=== PATIENT | female | born 1975 | race Caucasian/White ===

== ENCOUNTER → 2016-12-01 17:02 | Outpatient (CLI) | payer BC ==
[2014-10-04 08:21] VITALS: BMI 35.9
[~2016-12-01 17:02] MED LIST: PAXIL20 MG PO; PRILOSEC20 MG PO
== END | disposition home or self-care (01) ==
LOC: D.MAMMO 14:30
DX: Z12.31 Encounter for screening mammogram for malignant neoplasm of breast (principal)

== ENCOUNTER → 2017-01-05 17:17 | Outpatient (CLI) | payer BC ==
[2014-10-04 08:21] VITALS: BMI 35.9
== END | disposition home or self-care (01) ==
LOC: D.MAMMO 13:30
DX: R92.8 Other abnormal and inconclusive findings on diagnostic imaging of breast (principal)

== ENCOUNTER → 2017-07-06 16:23 | Outpatient (CLI) | payer BC ==
[2014-10-04 08:21] VITALS: BMI 35.9
== END | disposition home or self-care (01) ==
LOC: D.MAMMO 09:00
DX: R92.8 Other abnormal and inconclusive findings on diagnostic imaging of breast (principal)

== ENCOUNTER 2018-09-02 19:00 | Outpatient (CLI) | payer BC ==
[2014-10-04 08:21] VITALS: BMI 35.9
== END 2018-09-02 23:59 | disposition home or self-care (01) ==
LOC: D.MAMMO 19:00
DX: Z12.31 Encounter for screening mammogram for malignant neoplasm of breast (principal)

== ENCOUNTER 2018-09-23 22:30 | Emergency (ER) | payer BC ==
[~2018-09-23] VITALS: Ht 154.9 cm; Wt 84.5 kg
[2018-09-23 22:46] VITALS: Ht 154.9 cm; Wt 84.5 kg
[2018-09-23] MEDS ORDERED: SAVELLA50 MG (22:48)
[2018-09-23] MEDS ORDERED: REQUIP0.25 MG (22:49)
[2018-09-23] MEDS ORDERED: MOBIC7.5 MG (22:49)
[2018-09-23] MEDS ORDERED: ULTRAM50 MG (22:49)
[2018-09-23] MEDS ORDERED: LISINOPRIL2.5 MG (22:49)
[2018-09-23 23:10] LABS: BASOPHILS 0.2 % (0-2); EOSINOPHILS 2.5 % (0-7); HEMATOCRIT 42.1 % (36.0-48.0); HEMOGLOBIN 14.7 g/dL (12-16); IMMATURE GRANULOCYTES 0.2 % (0-5); LYMPHOCYTES 39.6 % (15-50); MCH 32.5 pg (26.0-34.0); MCHC 34.9 g/dL (31.0-37.0); MCV 93.1 fL (80.0-100.0); MEAN PLATELET VOLUME 9.6 fL (7.4-10.4); MONOCYTES 8.6 % (2-11); NEUTROPHILS 48.9 % (40-80); PLATELET COUNT 360 10x3/uL (130-400); RBC 4.52 10x6/uL (4.00-5.40); RDW 11.8 % (11.5-14.5); WBC 11.4 10x3/uL (4.8-10.8)
[2018-09-23 23:16] LABS: APPEARANCE CLEAR (CLEAR); COLOR YELLOW (YELLOW); GLUCOSE NEGATIVE (NEGATIVE); NITRITE NEGATIVE (NEGATIVE); PROTEIN NEGATIVE (NEGATIVE)
[2018-09-23 23:17] LABS: BACTERIA NONE SEEN /hpf (NONE SEEN); BILIRUBIN NEGATIVE (NEGATIVE); EPITHELIAL CELLS RARE /hpf (0-5); KETONE SMALL mg/dL (NEGATIVE); WHITE CELLS - URINE 0-5 /hpf (0-5)
[2018-09-23 23:24] LABS: ALBUMIN 3.2 g/dL (3.4-5.0); ALKALINE PHOSPHATASE 106 U/L (46-116); ALT (SGPT) 26 U/L (10-68); BILIRUBIN - TOTAL 0.34 mg/dL (0.2-1.3); CALC OSMOLALITY 277 mosm/kg (275-300); CALCIUM 8.6 mg/dL (8.5-10.1); CARBON DIOXIDE 29.1 mmol/L (21.0-32.0); CHLORIDE - SERUM 101 mmol/L (98-107); CREATININE - SERUM 0.7 mg/dL (0.6-1.3); POTASSIUM - SERUM 4.3 mmol/L (3.5-5.1); SODIUM 137 mmol/L (136-145); UREA NITROGEN 12 mg/dL (7-18); eGFR NON AFRICAN AMERICAN > 90 mL/min (90-120)
[2018-09-23 23:27] LABS: AMYLASE - SERUM 56 U/L (25-115); LIPASE 249 U/L (73-393); TROPONIN-I < 0.017 ng/mL (0.000-0.060)
[2018-09-23 23:35] LABS: GLUCOSE 163 mg/dL (74-106)
[2018-09-24 04:28] VITALS: BP 122/68
== END 2018-09-24 04:28 | disposition home or self-care (01) ==
LOC: D.ER 22:30
PROVIDERS: Family Medicine
DX: M54.5 Low back pain (principal); R31.9 Hematuria, unspecified

== ENCOUNTER 2019-05-04 12:43 | Emergency (ER) | payer OTHER ==
[~2019-05-04] VITALS: Ht 154.9 cm; Wt 84.8 kg
[~2019-05-04 12:43] MED LIST changes: +LISINOPRIL2.5 MG; +MOBIC7.5 MG; +REQUIP0.25 MG; +SAVELLA50 MG; +ULTRAM50 MG
[2019-05-04 12:49] VITALS: Ht 154.9 cm; Wt 84.8 kg
[2019-05-04 15:02] VITALS: BP 131/70
== END 2019-05-04 16:10 | disposition home or self-care (01) ==
LOC: D.ER 12:43
DX: T50.905A Adverse effect of unspecified drugs, medicaments and biological substances, initial encounter (principal); Y92.019 Unspecified place in single-family (private) house as the place of occurrence of the external cause

== ENCOUNTER → 2020-03-27 19:23 | Outpatient (CLI) | payer OTHER ==
[2019-05-04 12:49] VITALS: BMI 35.2
== END | disposition home or self-care (01) ==
LOC: D.MAMMO 10:30
PROVIDERS: ATTEND Emergency Medicine
DX: Z12.31 Encounter for screening mammogram for malignant neoplasm of breast (principal)

== ENCOUNTER 2021-02-23 20:53 | Emergency (ER) | payer OTHER ==
[~2021-02-23] VITALS: Ht 154.9 cm; Wt 74.5 kg
[~2021-02-23 20:53] MED LIST changes: +AZITHROMYCIN500 MG PO; +CRESTOR20 MG PO; +CYCLOBENZAPRINE10 MG PO; +DEXAMETHASONE2 MG PO; +FEXOFENADINE HC60 MG PO; +FLORAJEN3 CAPS460 MG PO; +MELATONIN 3 MG1 TAB PO; +MUCINEX600 MG PO; +NORVASC5 MG PO; +OMNICEF300 MG PO; +SINGULAIR10 MG PO; +SYMBICORT 16010.2 GM INH; +TESSALON PERLE100 MG PO; +VENTOLIN HFA [SP8 GM INH; +VITAMIN C PO; +VITAMIN D1000 UNI2 PO; +ZINC-220220 MG PO
[2021-02-23 20:57] VITALS: Ht 154.9 cm; Wt 74.5 kg
[2021-02-23] MEDS ORDERED: RINVOQ (21:03)
[2021-02-23 21:59] LABS: BASOPHILS 0.2 % (0-2); EOSINOPHILS 3.8 % (0-7); HEMATOCRIT 43.2 % (36.0-48.0); IMMATURE GRANULOCYTES 0.2 % (0-5); LYMPHOCYTES 32.5 % (15-50); MCH 33.3 pg (26.0-34.0); MCHC 34.7 g/dL (31.0-37.0); MCV 95.8 fL (80.0-100.0); MEAN PLATELET VOLUME 9.8 fL (7.4-10.4); MONOCYTES 4.2 % (2-11); NEUTROPHIL ABS# 8.91 10x3/uL (1.56-6.13); NEUTROPHILS 59.1 % (40-80); PLATELET COUNT 453 10x3/uL (130-400); RBC 4.51 10x6/uL (4.00-5.40); RDW 11.7 % (11.5-14.5); WBC 15.1 10x3/uL (4.8-10.8)
[2021-02-23 22:08] LABS: ANION GAP 10.6 mmol/L (8-16); CALCIUM 9.5 mg/dL (8.5-10.1); CARBON DIOXIDE 27.7 mmol/L (21.0-32.0); CREATININE - SERUM 0.9 mg/dL (0.6-1.3); POTASSIUM - SERUM 4.3 mmol/L (3.5-5.1)
[2021-02-23 22:14] LABS: ALBUMIN 3.7 g/dL (3.4-5.0); BILIRUBIN - TOTAL 0.32 mg/dL (0.2-1.3); PROTEIN - SERUM 7.4 g/dL (6.4-8.2)
[2021-02-23] MEDS ORDERED: BACLOFEN20 M1 PO (23:39)
[2021-02-24 00:01] VITALS: BP 122/63
== END 2021-02-24 | disposition home or self-care (01) ==
LOC: D.ER 20:53
PROVIDERS: Family Medicine
DX: M79.602 Pain in left arm (principal); I10 Essential (primary) hypertension; E78.5 Hyperlipidemia, unspecified; K21.9 Gastro-esophageal reflux disease without esophagitis; Z72.0 Tobacco use